=== PATIENT | female | born 1955 | race Caucasian/White ===

== ENCOUNTER 2022-12-28 16:51 | Emergency (ER) | payer MEDICARE ==
[~2022-12-28] VITALS: Ht 175.3 cm; Wt 75.3 kg
[2022-12-28] MEDS ORDERED: KETOROLAC 30MG VIAL (30MG/ML) ONE (16:56)
[2022-12-28] MEDS ORDERED: KETOROLAC 30MG VIAL (30MG/ML) IVP ONE (17:00)
[2022-12-28] MEDS ORDERED: MORPHINE 4 MG SYG IVP ONE ×2 (17:30→18:30)
[2022-12-28] MEDS ORDERED: LEVOFLOXACIN 500 MG/D5W 100 ML 100 ML IV SCH (18:30)
[2022-12-28] MEDS ORDERED: LEVO-70 PO ×2 (19:35→20:22)
[2022-12-28] MEDS ORDERED: IBUP-1493 PO (19:35)
[2022-12-28] MEDS ORDERED: ONDANSETRON 4MG INJ ONE (19:41)
[2022-12-28 19:44] VITALS: BP 128/71
[2022-12-28] MEDS ORDERED: DIPH,PERTUSS(ACELL),TET VAC/PF 0.5 ML VIAL IM ONE (20:00)
[2022-12-28] MEDS ORDERED: BACITRACIN 1 EACH PACKET TP ONE (20:00)
== END 2022-12-28 19:59 | disposition home or self-care (01) ==
LOC: EDH 16:51
DX: S61.234A Puncture wound without foreign body of right ring finger without damage to nail, initial encounter (principal); Z88.0 Allergy status to penicillin; Z98.890 Other specified postprocedural states; X58.XXXA Exposure to other specified factors, initial encounter; Y93.89 Activity, other specified; Y92.89 Other specified places as the place of occurrence of the external cause; Y99.8 Other external cause status
CPT/HCPCS: 99284; 96365; 96375; 90715; 73140; 96376; J1956; J2405; J2270 ×2; J1885